=== PATIENT | female | born 1980 | race Caucasian/White ===

== ENCOUNTER 2018-06-26 16:28 | Emergency (ER) | payer BC ==
[2018-06-26 17:39] VITALS: BP 139/75
--- NOTE | 2018-06-26 18:02 | UC ---
Abdominal Pain Female HPI - HPI Summary HPI Summary: Patient is a 37-year-old female presenting here for the evaluation of right flank pain. Her pain started on the evening of 06/24/2018. She has both right and mid back pain as well as right lower quadrant abdominal pain. She has had some nausea and vomiting with this. She denies any UTI symptoms. She is currently on her period. Denies any fever or chills. He has no history of kidney stones or kidney infection. She has had her tubes tied. - History of Current Complaint Chief Complaint: UCAbdominalPain Stated Complaint: RIGHT SIDE/LOWER BACK PAIN Time Seen by Provider: 06/26/18 17:42 Hx Obtained From: Patient Hx Last Menstrual Period: 06/24/18 Onset/Duration: Gradual Onset, Lasting Days Timing: Constant Severity Initially: Moderate Severity Currently: Mild Pain Intensity: 4 - 8 at max Pain Scale Used: 0-10 Numeric Location: Discrete At: RLQ Radiates: Yes Radiates to: Back, Flank Character: Colicy Aggravating Factor(s): Nothing Alleviating Factor(s): Nothing Associated Signs and Symptoms: Positive: Nausea, Vomiting Allergies/Adverse Reactions: Allergies Allergy/AdvReac Type Severity Reaction Status Date / Time No Known Allergies Allergy Verified 06/26/18 17:39 Home Medications: Home Medications NK [No Home Medications Reported] 06/26/18 [History Confirmed 06/26/18] PMH/Surg Hx/FS Hx/Imm Hx Previously Healthy: Yes - Surgical History Surgical History: None - Family History Known Family History: Positive: Hypertension - Social History Alcohol Use: Rare Substance Use Type: None Smoking Status (MU): Never Smoked Tobacco Review of Systems Constitutional: Negative Skin: Negative Eyes: Negative ENT: Negative Respiratory: Negative Cardiovascular: Negative Gastrointestinal: Abdominal Pain, Vomiting, Nausea Genitourinary: Negative Motor: Negative Neurovascular: Negative Musculoskeletal: Negative Neurological: Negative Psychological: Negative Is Patient Immunocompromised?: No All Other Systems Reviewed And Are Negative: Yes Physical Exam Triage Information Reviewed: Yes Appearance: Well-Appearing, No Pain Distress, Well-Nourished Vital Signs: Initial Vital Signs Temp 99.3 F 06/26/18 17:33 Pulse 75 06/26/18 17:33 Resp 16 06/26/18 17:33 BP 139/75 06/26/18 17:33 Pulse Ox 100 06/26/18 17:33 Vital Signs Reviewed: Yes Eyes: Positive: Conjunctiva Clear ENT: Positive: Hearing grossly normal, Uvula midline. Negative: Nasal congestion, Nasal drainage, Tonsillar swelling, Tonsillar exudate, Muffled voice , Hoarse voice Neck: Positive: Supple, Nontender, No Lymphadenopathy Respiratory: Positive: Lungs clear, Normal breath sounds, No respiratory distress, No accessory muscle use Cardiovascular: Positive: RRR, No Murmur Abdomen Description: Positive: No Organomegaly, CVA Tenderness (R). Negative: Distended, Guarding Bowel Sounds: Positive: Present Musculoskeletal: Positive: ROM Intact, No Edema Neurological: Positive: Alert, Muscle Tone Normal Psychological Exam: Normal Skin Exam: Normal Diagnostics - Laboratory Diagnostic Studies Completed/Ordered: UA +++ RBCs - Radiology No standard instances Xray Interpretation: No Acute Changes - CT abd Radiology Interpretation Completed By: Radiologist Abd Pain Female Course/Dx - Differential Dx/Diagnosis Provider Diagnoses: abdominal/flank pain of uncertain cause. suspect viral enteritis Discharge - Sign-Out/Discharge Documenting (check all that apply): Patient Departure - Discharge Plan Condition: Stable Disposition: HOME Patient Education Materials: Acute Abdominal Pain (ED) Referrals: Ambreen Fernandez [Primary Care Provider] - 2 Days Additional Instructions: The CT showed no evidence of appendicitis or kidney stone - Billing Disposition and Condition Condition: STABLE Disposition: Home
--- NOTE | 2018-06-26 18:33 | RAD ---
INDICATION: Right flank abdominal pain and hematuria. COMPARISON: There are no prior studies available for comparison. TECHNIQUE: A CT scan of the abdomen and pelvis was performed without intravenous and without oral contrast. Contiguous axial sections were obtained from the lung bases through the symphysis pubis. Images were reconstructed in the coronal and sagittal planes. FINDINGS: The lung bases are clear. No pleural effusion is present. The liver and spleen are mildly enlarged without significant focal abnormality on this noncontrast study. No calcified gallstones are seen. No pancreatic ductal distention or calcifications are seen. The adrenal glands and kidneys are normal in size. No renal calculi or hydronephrosis is seen. No ureteral or bladder calculi are seen. The aorta is normal in caliber without significant calcific plaque. No significant enlarged retroperitoneal lymph nodes are seen. The stomach, small and large bowel appear nondistended. The appendix is within normal limits. There is a small periumbilical hernia containing fat. The uterus is anteverted and normal in size. There is a tampon in place. There are bilateral tubal ligation clips present. No free intraperitoneal air or fluid is seen. No significant focal osseous abnormality is seen. IMPRESSION: 1. NO EVIDENCE FOR ACUTE FINDING OR CAUSE FOR THE PATIENT'S ABDOMINAL PAIN IS SEEN. 2. MILD HEPATOSPLENOMEGALY.
[2018-06-26] MEDS ORDERED: Ondansetron ODT TAB* 4 MG PO ONE (18:41)
== END 2018-06-26 18:51 | disposition home or self-care (01) ==
LOC: UCCORT 16:28
DX: R10.9 Unspecified abdominal pain (principal)
CPT/HCPCS: 74176; 81003; 84702; 99212; A9270-GY; G0463